=== PATIENT | male | born 1970 | race Two or more races ===

== ENCOUNTER 2017-12-17 03:12 | Emergency (ER) | payer OTHER ==
[~2017-12-17] VITALS: Ht 172.7 cm; Wt 68.0 kg
[~2017-12-17 03:12] MED LIST: EPZICOM TABLET1 TAB PO; MOTRIN800 MG PO; REYATAZ300 MG PO; [UNRECOGNIZED DRUG - OTHER]
[2017-12-17] MEDS ORDERED: KETO10TA2 PO (05:23)
[2017-12-17] MEDS ORDERED: CIPRO500 MG PO (05:23)
== END 2017-12-17 05:33 | disposition home or self-care (01) ==
LOC: ER 03:12
DX: L03.031 Cellulitis of right toe (principal)